=== PATIENT | female | born 1960 | race Caucasian/White ===

== ENCOUNTER 2020-02-05 08:28 | Outpatient (CLI) | payer BC, SELFPAY ==
--- NOTE | ~2020-02-05 | XR_ITS ---
XR foot LT 2V DATE: 02/05/2020 08:50 INDICATION: Left foot pain TECHNIQUE: AP and lateral views COMPARISON: None FINDINGS: Prominent plantar calcaneal enthesopathy without associated erosive change or periostitis. No fracture or dislocation, periosteal reaction or bone destruction. IMPRESSION: Plantar calcaneal enthesopathy Reviewed, dictated and finalized at location A. DIMPLING MACHINE OPERATOR
--- NOTE | ~2020-02-05 | XR_ITS ---
XR hand RT 2V DATE: 02/05/2020 08:50 INDICATION: Right hand pain TECHNIQUE: AP and lateral views COMPARISON: 08/09/2018 right hand FINDINGS: Mild osteoarthritic change at the third metacarpophalangeal joint. No erosive changes. No fracture or dislocation, periosteal reaction or bone destruction. IMPRESSION: Mild third metacarpophalangeal joint osteoarthritic change Reviewed, dictated and finalized at location A. H BRUSHING AND SUEDING SUPERVISOR
--- NOTE | ~2020-02-05 | XR_ITS ---
EXAMINATION: XR chest 2V 02/05/2020 08:51 INDICATION: Polyarthralgias. PROCEDURE: 2 view chest COMPARISON: 10/21/2010 FINDINGS: The lungs are clear. The cardiomediastinal silhouette is within normal limits. There are no pleural effusions. There is no pneumothorax suspected. IMPRESSION: 1: NO ACUTE CARDIOPULMONARY DISEASE. Reviewed, dictated and finalized at location A. ERTY INSURANCE CLAIMS EXAMINER
--- NOTE | ~2020-02-05 | XR_ITS ---
XR hand LT 2V DATE: 02/05/2020 08:50 INDICATION: Left hand pain TECHNIQUE: AP and lateral views COMPARISON: None FINDINGS: No fracture or dislocation, periosteal reaction or bone destruction. There is minimal osteo arthritic change at the third metacarpophalangeal joint and some interphalangeal joints. No erosive c hange is noted. IMPRESSION: Minimal osteoarthritis Reviewed, dictated and finalized at location A. ERWARE WASHER IMPRESSION: Minimal osteoarthritis
--- NOTE | ~2020-02-05 | XR_ITS ---
XR foot RT 2V DATE: 02/05/2020 08:50 INDICATION: Right foot pain TECHNIQUE: AP and lateral views COMPARISON: None FINDINGS: Fracture or dislocation, periosteal reaction or bone destruction. No erosive change. IMPRESSION: No significant abnormality Reviewed, dictated and finalized at location A. R HYDRANT INSTALLER IMPRESSION: No significant abnormality
== END 2020-02-05 08:29 | disposition home or self-care (01) ==
LOC: ANHIMG 08:36
PROVIDERS: PCP Physician Assistant; Visit Provider Physician Assistant Medical
DX: M25.50 Pain in unspecified joint (principal); M77.32 Calcaneal spur, left foot; M19.041 Primary osteoarthritis, right hand
CPT/HCPCS: 71046; 73120; 73620

== ENCOUNTER 2020-03-15 08:52 | Outpatient (CLI) | payer BC, SELFPAY ==
--- NOTE | ~2020-03-15 | XR_ITS ---
XR hand RT 2V DATE: 03/15/2020 09:08 INDICATION: Right middle digit pain TECHNIQUE: AP and lateral views of right hand COMPARISON: None FINDINGS: Mild osteoarthritic change at the third metacarpophalangeal joint. No fracture, dislocation, periosteal reaction or bone destruction. No erosive change is evident. No c hondrocalcinosis. IMPRESSION: Mild osteoarthritis at the third metacarpophalangeal joint Reviewed, dictated and finalized at location A. TIC BOAT PATCHER
== END 2020-03-15 08:53 | disposition home or self-care (01) ==
LOC: ANHIMG 08:56
PROVIDERS: PCP Physician Assistant; Visit Provider Physician Assistant Medical
DX: M79.644 Pain in right finger(s) (principal); M19.041 Primary osteoarthritis, right hand
CPT/HCPCS: 73120

== ENCOUNTER 2024-05-11 08:15 | Outpatient (CLI) | payer MEDICARE, SELFPAY ==
--- NOTE | ~2024-05-11 | XR_ITS ---
Left Hand Technique: PA and lateral views were obtained. Clinical History: Arthropathic siriasis COMPARISON: 02/05/2020 Findings: No acute fracture or dislocation is seen. Osseous alignment is anatomic. Joint spaces are p reserved. Soft tissues are unremarkable. Impression: Unremarkable left hand. Reviewed, dictated and finalized at location . Impression: Unremarkable left hand.
--- NOTE | ~2024-05-11 | XR_ITS ---
Right Hand Technique: PA and lateral views were obtained. Clinical History: Arthropathic psoriasis COMPARISON: 03/15/2020 Findings: No acute fracture or dislocation is seen. Osseous alignment is anatomic. Stable mild degene rative change of the third MCP joint. Soft tissues are unremarkable. Impression: Stable mild degenerative change of the third MCP joint. Reviewed, dictated and finalized at location . Impression: Stable mild degenerative change of the third MCP joint.
--- NOTE | ~2024-05-11 | XR_ITS ---
Left foot Technique: AP and lateral views were obtained. Clinical History: Arthropathic cirrhosis COMPARISON: 02/05/2020 Findings: No acute fracture or dislocation is seen. Osseous alignment is anatomic. Joint spaces are p reserved without erosive or degenerative change. Soft tissues are unremarkable. Impression: Unremarkable left foot radiographs. Reviewed, dictated and finalized at location . Impression: Unremarkable left foot radiographs.
--- NOTE | ~2024-05-11 | XR_ITS ---
Right foot Technique: AP and lateral views were obtained. Clinical History: Arthropathic psoriasis Findings: No acute fracture or dislocation is seen. Osseous alignment is anatomic. Joint spaces are p reserved without erosive or degenerative change. Soft tissues are unremarkable. Impression: Unremarkable right foot radiographs. Reviewed, dictated and finalized at location . Impression: Unremarkable right foot radiographs.
== END 2024-05-11 08:16 | disposition home or self-care (01) ==
PROVIDERS: PCP Physician Assistant Medical; Visit Provider Physician Assistant Medical
DX: L40.50 Arthropathic psoriasis, unspecified (principal); M19.041 Primary osteoarthritis, right hand
CPT/HCPCS: 73120; 73620

== ENCOUNTER 2024-11-06 08:25 | Outpatient (CLI) | payer MEDICARE, SELFPAY ==
--- NOTE | ~2024-11-06 | DEXA_ITS ---
Bone Density Report Name: ISSA GOMEZ Age: 64 Sex: Female Ethnicity: White Date of : 1960 Indication: postmenopausal; screening for osteoporosis; height loss; cancer; hysterectomy; Referring Provider: CHANTEL, HEMALATHA Study: Bone densitometry was performed. Exam Date: November 06, 2024 Accession number: [id number] Bone Density: Region BMD T-score Z-score Classification AP Spine(L1-L4) 0.836 -1.9 -0.1 Osteopenia Femoral Neck (Left) 0.638 -1.9 -0.3 Osteopenia Total Hip (Left) 0.736 -1.7 -0.4 Osteopenia Femoral Neck (Right) 0.581 -2.4 -0.8 Osteopenia Total Hip (Right) 0.666 -2.3 -1.0 Osteopenia Total Hip Mean 0.701 -2.0 -0.7 Osteopenia World Health Organization criteria for BMD impression classify patients as: Normal (T-score at or above -1.0), Osteopenia (T-score between -1.0 and -2.5), or Osteoporosis (T-score at or below -2.5). 10-year Fracture Risk(1): Major Osteoporotic Fracture 12% Hip Fracture 2.4% Reported Risk Factors: [place] (), Neck BMD=0.581, BMI=24.2 (1) FRAX(R) Version 3.08. Fracture probability calculated for an untreated patient. Fracture probability may be lower if the patient has received treatment. Clinical Information Provided by Patient: Has used the following medications: Vitamin D Has the following medical conditions: Cancer, Hysterectomy, skin CA Patient maximum height was 64.0 Menopause Age: 34 Drinks caffeinated beverages Onset of menses at age 15 Number of children 1 Impression: The patient has low bone mass, based on the Right Femoral Neck T-score. The patient has an estimated ten-year risk of hip fracture of 2.4% and an estimated ten-year risk of major fracture of 12%, based on the WHO FRAX algorithm. Discussion: BONE DENSITY IS LOW AT ONE OR MORE SKELETAL SITES. This patient's lowest T-score is low at one or more skeletal sites. It meets the World Health Organization's (WHO) criteria for ?low bone mass? (T-score between -1.0 and -2.5). The patient's 10-year risk of fracture as calculated by FRAX is less than the threshold where pharmacological therapy is recommended by the National Osteoporosis Foundation (NOF). However, all treatment decisions require clinical judgment and consideration of individual patient factors, including patient preferences, comorbidities, previous drug use, risk factors not captured in the FRAX model (e.g., frailty, falls, vitamin D deficiency, increased bone turnover, interval significant decline in bone density) and possible under or overestimation of fracture risk by FRAX. The patient should follow a healthful lifestyle (good nutrition with adequate calcium and vitamin D, and appropriate weight-bearing exercise). Follow-Up: Consider repeating this study in 2 to 3 years to reassess this patient's status, or sooner if there is some new clinical indication. Reported by: ROSSANA on 11/06/2024 9:09:00 AM. Reviewed, dictated and finalized at location A.
--- OUTSIDE RECORDS SUMMARY | 2024-11-06 08:35 | XMS_ITS | Encounter Summary ---
Author Organization [facility] Facility Care Team Providers Care Environment Coordinator Name Role Phone Kavita Holloway Primary Care Provider [phone] Papito Rubin MD Unavailable Encounter Details Date Type Department Care Team (Latest Contact Info) Description 04/10/2016 Orders Only [facility]IN[facility] ProviderJakub MD [address] [place] [id number] Social History Tobacco Use Types Packs/Day Years Used Date Smoking Tobacco: Never Assessed Comments Unknown Sex and Gender Information Value Date Recorded Sex Assigned at Not on file Legal Sex Female 12:58 AM 1ST GRADE TEACHER Gender Identity Female 04/04/2020 9:55 AM 1ST GRADE TEACHER Sexual Orientation Straight 04/04/2020 9: 55 AM 1ST GRADE TEACHER documented as of this encounter Plan of Treatment Not on file documented as of this encounter Procedures Procedure Name Priority Date/Time Associated Diagnosis Comments PROCEDURE - RESULT 03/23/2016 12 :00 AM 1ST GRADE TEACHER documented in this encounter Results * PROCEDURE - RESULT (03/23/2016 12:00 AM 1ST GRADE TEACHER) Narrative 03/23/2016 12:00 AM 1ST GRADE TEACHER Ordered by an unspecified provider. Historical Provider Final Res ult documented in this encounter Visit Diagnoses Not on filedocumented in this encounter Additional Health Concerns Infection Onset Date Last Indicated Resolved Time COVID: Suspected 01/14/2024 01/14/2024 01/14/2024 9:25 AM 1ST GRADE TEACHER documented as of this encounter Care Teams Environment Coordinator Relationship Specialty Start Date End Date Kavita Holloway PA [address] [place] [address] PCP - General Internal Medicine 05/02/18 Papito Rubin MD [address] [place] [address] Consulting Physician Rheumatology 01/16/20 documented as of this encounter
--- OUTSIDE RECORDS SUMMARY | 2024-11-06 08:36 | XMS_ITS | Encounter Summary ---
Author Organization [facility] Facility Care Team Providers Care Eeo Officer Name Role Phone Kavita Holloway Primary Care Provider [phone]- [phone] Papito Rubin MD Unavailable [phone] Encounter Details Date Type Department Care Team (Latest Contact Info) Description 08/17/2016 Orders Only [facility]INCON[facility] ProviderJakub MD [address] [place] [id number] Social History Tobacco Use Types Packs/Day Years Used Date Smoking Tobacco: Never Assessed Comments Unknown Sex and Gender Information Value Date Recorded Sex Assigned at Not on file Legal Sex Female 12:58 AM SLOT OPERATIONS DIRECTOR Gender Identity Female 04/04/2020 9:55 AM SLOT OPERATIONS DIRECTOR Sexual Orientation Straight 04/04/2020 9: 55 AM SLOT OPERATIONS DIRECTOR documented as of this encounter Plan of Treatment Not on file documented as of this encounter Procedures Procedure Name Priority Date/Time Associated Diagnosis Comments SCAN - PATHOLOGY 08/17/2016 12:0 0 AM CDT documented in this encounter Results * SCAN - PATHOLOGY (08/17/2016 12:00 AM CDT) Narrative 08/17/2016 12:00 AM CDT Ordered by an unspecified provider. Historical Provider Final Res ult documented in this encounter Visit Diagnoses Not on filedocumented in this encounter Additional Health Concerns Infection Onset Date Last Indicated Resolved Time COVID: Suspected 01/14/2024 01/14/2024 01/14/2024 9:25 AM SLOT OPERATIONS DIRECTOR documented as of this encounter Care Teams Eeo Officer Relationship Specialty Start Date End Date Kavita Holloway PA [address] [place] [address] PCP - General Internal Medicine 05/02/18 Papito Rubin MD [address] [place] [address] Consulting Physician Rheumatology 01/16/20 documented as of this encounter
--- OUTSIDE RECORDS SUMMARY | 2024-11-06 08:36 | XMS_ITS | Encounter Summary ---
Author Organization [facility] Facility Care Team Providers Care Pin Game Machine Inspector Name Role Phone Kavita Holloway Primary Care Provider [phone]- [phone] Papito Rubin MD Unavailable [phone] Encounter Details Date Type Department Care Team (Latest Contact Info) Description 05/29/2016 Orders Only [facility]INCON[facility] ProviderJakub MD [address] [place] [address] Social History Tobacco Use Types Packs/Day Years Used Date Smoking Tobacco: Never Assessed Comments Unknown Sex and Gender Information Value Date Recorded Sex Assigned at Not on file Legal Sex Female 12:58 AM PROFESSOR CRIMINAL JUSTICE Gender Identity Female 04/04/2020 9:55 AM PROFESSOR CRIMINAL JUSTICE Sexual Orientation Straight 04/04/2020 9: 55 AM PROFESSOR CRIMINAL JUSTICE documented as of this encounter Plan of Treatment Not on file documented as of this encounter Procedures Procedure Name Priority Date/Time Associated Diagnosis Comments SCAN - LABS 06/25/2016 12:00 AM CDT documented in this encounter Results * SCAN - LABS (06/25/2016 12:00 AM CDT) Narrative 06/25/2016 12:00 AM CDT Ordered by an unspecified provider. Historical Provider Final Res ult documented in this encounter Visit Diagnoses Not on filedocumented in this encounter Additional Health Concerns Infection Onset Date Last Indicated Resolved Time COVID: Suspected 01/14/2024 01/14/2024 01/14/2024 9:25 AM PROFESSOR CRIMINAL JUSTICE documented as of this encounter Care Teams Pin Game Machine Inspector Relationship Specialty Start Date End Date Kavita Holloway PA [address] [place] [address] PCP - General Internal Medicine 05/02/18 Papito Rubin MD [address] [place] [address] Consulting Physician Rheumatology 01/16/20 documented as of this encounter
--- OUTSIDE RECORDS SUMMARY | 2024-11-06 08:36 | XMS_ITS | Clinical Summary ---
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 Role Phone Kavita Holloway Primary Care Provider [phone] Papito Rubin MD Unavailable [phone] Allergies Active Allergy Reactions Criticality Noted Date Comments Doxycycline Hives Medium 03/17/2024 Penicillin V Potassium Rash Medium 08/25/2018 Penicillins Hives Medium 01/13/2018 Hives Sulfa (Sulfonamide Antibiotics) Rash,Hives Medium 07/2017 Hives Cetirizine Flushing (skin) Low 03/02/2022 Medications omega-3 fatty acids 500 mg capsule 1600mg Active loratadine (CLARITIN) 10 mg tablet Rx: Claritin PRN Active cholecalcifero l (VITAMIN D-3) 5,000 unit capsule Take 4,000 Units by mouth daily Active mometasone (NASONEX) 50 mcg/actuation nasal spray SPRAY 2 SPRAYS INTO EACH NOSTRIL EVERY DAY 51 g 1 3 Active coenzyme Q10 10 mg capsule Take 1 capsule (10 mg total) by mouth daily Active Otezla 30 mg tablet TAKE 1 TABLET BY MOUTH TWICE DAILY 60 tablet 2 5 Active venlafaxine XR (EFFEXOR-XR) 150 mg 24 hr capsule TAKE 1 CAPSULE BY MOUTH ONCE DAILY WITH FOOD 90 capsule 5 Active hydroxychloroq uine (PLAQUENIL) 200 mg tablet TAKE 1 & 1/2 (ONE & ONE-HALF) TABLETS BY MOUTH ONCE DAILY 135 tablet 1 5 Active triamterene-hy droCHLOROthiaz ruben 37.5-25 mg per tablet TAKE 1 TABLET BY MOUTH ONCE DAILY IN THE MORNING 90 tablet 5 Active estradioL (ESTRACE) 0.01 % (0.1 mg/gram) vaginal cream Insert 1 g into the vagina daily 5 Active triamterene-hy droCHLOROthiaz ruben 37.5-25 mg per tablet TAKE 1 TABLET/CAPSU LE BY MOUTH EVERY MORNING 90 tablet 1 5 025 Discontinued hydroxychloroq uine (PLAQUENIL) 200 mg tabletIndicati ons:Psoriatic Arthritis Take 1.5 tablets (300 mg total) by mouth daily 135 tablet 1 5 025 Discontinued venlafaxine XR (EFFEXOR-XR) 150 mg 24 hr capsule TAKE 1 CAPSULE BY MOUTH ONCE DAILY WITH FOOD 90 capsule 5 025 Discontinued Active Problems Problem Noted Date Diagnosed Date BMI 24.0-24.9, adult 10/30/2024 Assessment & Plan (10/30/2024 8:45 AM CDT): Weight/BMI is in healthy range. Continue healthy lifestyle to maintain. Breast cancer screening by mammogram 04/23/2024 Assessment & Plan (04/23/2024 5:08 PM CDT): Check labs Menopause 12/13/2023 Assessment & Plan (12/13/2023 9:29 AM EYE CARE PROFESSIONAL): Check DEXA Hyperglycemia 07/12/2023 Assessment & Plan (04/23/2024 5:07 PM CDT): Pre-diabetes/hyperglycemia is a precursor to Dm. Stressed importance of working on diet (decrease your simple sugars and one carbohydrate with each meal) and increase you exercise to achieve weight loss and this will help prevent you from progressing to diabetes. Assessment & Plan (07/12/2023 9:18 AM CDT): Check labs Pre-diabetes/hyperglycemia is a precursor to Dm. Stressed importance of working on diet (decrease your simple sugars and one carbohydrate with each meal) and increase you exercise to achieve weight loss and this will help prevent you from progressing to diabetes. Mixed hyperlipidemia 07/12/2023 Assessment & Plan (04/23/2024 5:07 PM CDT): Encouraged patient to follow low fat/low chol diet like the Mediterranean diet. Increase good fats in the diet. Increase exercise. Monitor labs as needed. She is concerned that the statin may be causing some pain. Encouraged her to stop it for a month and see if her symptoms fully resolve. Advised she could try restarting it and just do it twice a week as some is better than none. Will continue trial out to see if we can get her on a statin for its benefit. Assessment & Plan (12/13/2023 9:29 AM EYE CARE PROFESSIONAL): Encouraged patient to follow low fat/low chol diet like the Mediterranean diet. Increase good fats in the diet. Increase exercise. Monitor labs as needed. Discussed results at length including the persistence of the elevation of the LDL. Recommend statin. Reviewed risks benefits alternatives side effects and proper use. Will start Crestor 10 mg. Recheck LFTs in 4 weeks and the lipid panel in 3-4 months Assessment & Plan (07/12/2023 9:19 AM CDT): Encouraged patient to follow low fat/low chol diet like the Mediterranean diet. Increase good fats in the diet. Increase exercise. Monitor labs as needed. Age-related cataract of both eyes 01/28/2023 Assessment & Plan (01/28/2023 1:05 PM EYE CARE PROFESSIONAL): Planning cataract extraction with Dr. Flannery on 02/04. Chalazion left upper eyelid 07/06/2022 Assessment & Plan (01/28/2023 1:05 PM EYE CARE PROFESSIONAL): Planning excision of the growth the left upper lid with Dr. Flannery. Assessment & Plan (07/06/2022 10:28 AM CDT): Discussed with patient that I feel like this may actually be a chalazion and not a stye. She can continue with warm compresses tonight she could even try Jas and Jas baby shampoo to the area but I suspect this may need to be removed. She already has the appointment with Ophthalmology tomorrow so recommend that she keep this appointment for further evaluation. Discussed importance of continuing to monitor for any signs or symptoms of infection. Seasonal allergies 03/08/2022 Assessment & Plan (07/12/2023 9:18 AM CDT): Continue with Claritin, Nasonex as needed for allergy symptoms. Assessment & Plan (03/08/2022 10:38 AM EYE CARE PROFESSIONAL): Encouraged continuing with antihistamine change control manager her Flonase to Nasonex to see if she tolerates it a little bit better and use Mucinex on a regular basis to see if we can help her symptoms improve. 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 Dyspnea 12/10/2021 Assessment & Plan (12/10/2021 12:44 PM CDT): Reports elevated blood pressure readings recently and including today. Does appreciate some intermittent shortness of breath at times. Lungs are CTA bilaterally. Will obtain CXR, TTE and PFTs for evaluation. History of COVID-19 03/20/2021 Overview (03/20/2021): 03/2021 Assessment & Plan (03/20/2021 9:07 AM EYE CARE PROFESSIONAL): Patient has positive home test. Will send a copy of it thru my Chart. Let pt know the newest CDC recommendations are as follows: If positive COVID: Stay home for at least 5 days and isolate from others in your home. Wear a well-fitted mask if you must be around others in your home. End isolation after 5 full days if you are fever-free for 24 hours (without the use of fever-reducing medication) and your symptoms are improving. Wear a well-fitted mask for 10 full days any time you are around others inside your home or in public. Do not go to places where you are unable to wear a mask. Avoid travel Avoid being around people who are at high risk Consider mAb or there appropriate meds depending on risk factors. Encouraged consideration of the mAb due to her immunocompromised state. She would like to pursue. Will contact her Rheum for any further instructions and place order once the COVID tests are received. Treat sxs with Tylenol, Cough/cold medication otc and add VitD 5,000IU daily and Zinc 50mg daily. Monitor sxs and call or go to the ER if has any of the following: --trouble breathing --persistent pain or pressure in the chest --new confusion --inability to wake or stay awake -- bluish lips or face Encounter for long-term (cur rent) use of high-risk medication 03/08/2020 Overview (04/15/2022): 03/2022: TPMT 13 Assessment & Plan (10/03/2024 9:37 AM CDT): Monitor routine labs while on immunomodulatory medication/plaquenil. Labs as below. 05/2024: Normal HCQ/retinal eye exam 03/2022: TPMT 13 01/2020 labs: Neg Hep B/C, Neg Tspot *Received most recent Covid booster 03/2022 Assessment & Plan (01/28/2023 1:12 PM EYE CARE PROFESSIONAL): Patient on Otezla managed by [facility] Assessment & Plan (11/10/2022 11:33 AM CDT): Monitor routine labs while on immunosuppressive medication. 03/2022: TPMT 13 01/2020 labs: Neg Hep B/C, Neg Tspot *Received most recent Covid booster 03/2022 Assessment & Plan (09/01/2022 10:12 AM CDT): Monitor routine labs while on immunosuppressive medication. 03/2022: TPMT 13 01/2020 labs: Neg Hep B/C, Neg Tspot *Received most recent Covid booster 03/2022 Assessment & Plan (06/08/2022 9:36 PM CDT): Monitor routine labs while on immunosuppressive medication. 03/2022: TPMT 13 01/2020 labs: Neg Hep B/C, Neg Tspot *Received most recent Covid booster 03/2022 Assessment & Plan (04/08/2022 9:25 AM EYE CARE PROFESSIONAL): Monitor routine labs while on immunosuppressive medication. 01/2020 labs: Neg Hep B/C, Neg Tspot *Received most recent Covid booster 03/2022 Assessment & Plan (12/10/2021 8:56 AM CDT): Monitor routine labs while on immunosuppressive medication. 01/2020 labs: Neg Hep B/C, Neg Tspot Assessment & Plan (10/28/2021 8:25 AM CDT): Monitor routine labs while on immunosuppressive medication. 01/2020 labs: Neg Hep B/C, Neg Tspot Assessment & Plan (07/29/2021 8:56 AM CDT): Monitor routine labs while on immunosuppressive medication. 01/2020 labs: Neg Hep B/C, Neg Tspot Assessment & Plan (05/25/2021 4:17 PM CDT): Monitor routine labs while on immunosuppressive medication. 01/2020 labs: Neg Hep B/C, Neg Tspot Assessment & Plan (02/21/2021 9:46 AM EYE CARE PROFESSIONAL): Monitor routine labs while on immunosuppressive medication. 01/2020 labs: Neg Hep B/C, Neg Tspot Assessment & Plan (11/17/2020 3:23 PM CDT): Monitor routine labs while on immunosuppressive medication. 01/2020 labs: Neg Hep B/C, Neg Tspot Assessment & Plan (09/18/2020 8:14 AM CDT): Monitor routine labs while on immunosuppressive medication. 01/2020 labs: Neg Hep B/C, Neg Tspot Assessment & Plan (07/14/2020 3:31 PM CDT): Monitor routine labs. 01/2020 labs: Neg Hep B/C, Neg Tspot Assessment & Plan (04/10/2020 8:54 AM EYE CARE PROFESSIONAL): Monitor routine labs. 01/2020 labs: Neg Hep B/C, Neg Tspot Assessment & Plan (03/08/2020 12:11 PM EYE CARE PROFESSIONAL): Monitor routine labs. 01/2020 labs: Neg Hep B/C, Neg Tspot Psoriasis 01/26/2020 Assessment & Plan (04/23/2024 5:05 PM CDT): [facility] in [place] Psoriatic arthritis/Psoriasis -- Otezla and mobic (prn but hasn't taken in months) Assessment & Plan (07/12/2023 9:17 AM CDT): Psoriasis and psoriatic arthritis have both been stable with the Otezla and Mobic. Continue per [facility] in [facility] Assessment & Plan (01/28/2023 1:12 PM EYE CARE PROFESSIONAL): Managed by [facility] and Luther [facility]. Currently on Otezla. Has Mobic but has not used it in months. Feels like her symptoms are well controlled. Discussed with patient Otezla surgeries. She states she was told as long as she is not antibiotics there would not be any limitation. I would still defer this conversation to the supervisor tumbling and rolling for confirmation Psoriatic arthritis 11/22/2019 Overview (05/16/2024): 01/27 labs: Neg HBV/HCV/Tspot, AVISE PATRICE IgG 43 @ 1:320 speckled pattern, anti-thyroglobulin 277 01/27 xrays: -Lt foot: Prominent plantar calcaneal enthesophyte -Rt foot: Unremarkable -Lt hand: minimal OA changes at 3rd MCP joint and some IP joints -Rt hand: Mild OA changes at the 3rd MCP joint -CXR: Unremarkable 05/2024 XR: -Rt hand: stable mild degenerative change of 3rd MCP joint -Lt hand: unremarkable -Bilat feet: unremarkable US right hand/wrist (01/29/20): Mild/moderate effusions and power doppler on examination which will have to be correlated clinically. Moderate synovial thickening in the 3rd MCP and 2nd PIP joints. Grade 2 power doppler in the wrist and radial/scaphoid joint. Grade 2 effusion in the 3rd PIP joint. Grade 1 power doppler in the 3rd MCP joint and volar wrist. Assessment & Plan (10/03/2024 10:40 AM CDT): Repeat hand/feet XRs from May were unremarkable aside from mild OA changes of the R 3rd MCP joint. Remains on 30mg Otezla BID and began 300mg HCQ daily after last visit and tolerating wo side effects. Appreciates lessening of her joint pain with HCQ. Continues to have constant pain/swelling of the R 3rd>2nd MCP joints affecting her ability to lift/carry items in that hand. Otherwise doing well and able to be active. Slight amount of fullness of several PIP joints with moderate synovitis of the R 3rd MCP joint. To continue 30mg Otezla BID and 300mg HCQ daily. Eye exam OK per 05/2024 report. Will provide a R 3rd MCP joint injection today in office. Will check labs today. To return in 3 months, sooner if needed. Seen with Dr. Rubin. Assessment & Plan (04/23/2024 5:01 PM CDT): [facility] in [place] Psoriatic arthritis/Psoriasis -- Otezla and mobic (prn but hasn't taken in months) Assessment & Plan (04/20/2024 10:20 AM CDT): Remains on 30mg Otezla BID. Off Taltz (lost effect) and AZA (Nausea/emesis). Reports constant pain within right hand and left foot for which she has been taking aleve. Still able to perform ADLs and go on her walks. There is moderate amount of synovitis of the MCP/PIP/MTP joints on exam. *Due to burden of disease, will administer kenalog 100 mg IM injection, in office, today. Patient is aware of SE of triamcinolone injection including but not limited to HTN, increase blood glucose, glaucoma and osteopenia with long term acute care registered nurse use of steroids. To continue 30mg Otezla BID. Recommend starting treatment with hydroxychloroquine 300 mg once daily. Discussed SE including but not limited to dizziness, nausea/diarrhea and in rare cases retinal toxicity. Retinal toxicity is rare and occurs in less than 1% of people taking HCQ. It takes being on HCQ for five years before there is a small risk of retinal toxicity. Discussed need for eye exam and provided paperwork with further details. She was amenable to the plan. If no benefit with HCQ after 3-4 months we discussed change in biologic therapy - Bimzelx vs Orencia would be appropriate options. Will also repeat hand/foot XRs to evaluate for any signs of damage from her PsA. No labs are required while on this medication. To return in 3 months, sooner if needed. Assessment & Plan (12/13/2023 9:28 AM EYE CARE PROFESSIONAL): Psoriatic arthritis is managed by [facility]. Assessment & Plan (10/22/2023 10:59 AM CDT): Remains on 30mg Otezla BID. Off Taltz (lost effect) and AZA (Nausea/emesis). Overall has done well since her last visit with only slight return of right hand discomfort recently. Has not required meloxicam. Mild amount of synovitis on exam with few tender peripheral joints. To continue 30mg Otezla BID. No labs are required while on this medication. To return in 6 months, sooner if needed. Assessment & Plan (07/12/2023 9:17 AM CDT): Psoriasis and psoriatic arthritis have both been stable with the Otezla and Mobic. Continue per [facility] in [facility] Assessment & Plan (06/29/2023 10:09 AM CDT): Remains on 30mg Otezla BID. Off Taltz (lost effect) and AZA (Nausea/emesis). Currently experiencing a flare that has affected her hands, hips, knees and feet with moderate AM joint stiffness and swelling. Tried aleve w/o benefit and then meloxicam but did not feel any significant difference. CDAI 25 with moderate synovitis on exam. *Due to burden of disease, will administer kenalog 100 mg IM injection, in office, today. Patient is aware of SE of triamcinolone injection. To continue 30mg Otezla BID. Will check basic labs today. Return in September as previously scheduled - may push this out if she is feeling better. Assessment & Plan (03/16/2023 9:25 AM EYE CARE PROFESSIONAL): Remains fairly stable on 30mg Otezla BID. Off Taltz (lost effect) and AZA (Nausea/emesis). Off meloxicam and has only taken a few aleve prn over the holidays. She has been able to perform her ADLs, go for walks without difficulty although still with some plantar fascia and achilles tendon discomfort. Some synovitis present on exam but CDAI is low. Continue 30mg Otezla BID. Will check basic labs at next visit. Return in 6 months, sooner if needed. Assessment & Plan (01/28/2023 1:12 PM EYE CARE PROFESSIONAL): Managed by [facility] and [facility]. Currently on Otezla. Has Mobic but has not used it in months. Feels like her symptoms are well controlled. Discussed with patient Otezla surgeries. She states she was told as long as she is not antibiotics there would not be any limitation. I would still defer this conversation to the supervisor tumbling and rolling for confirmation Assessment & Plan (11/10/2022 11:40 AM CDT): Began Otezla BID after last visit and tolerating w/o side effects. Joints feel better, able to be more active, less AM joint stiffness. Off Taltz (lost effect) and AZA (Nausea/emesis). Off meloxicam. Mild amount of synovitis and joint tenderness on exam today. Appears to be responding to medication. Continue 30mg Otezla BID. Will check CMP/CBC today. Return in 3-4 months, sooner if needed. Assessment & Plan (09/01/2022 4:17 PM CDT): Tried azathioprine 50mg once daily again but had nausea/emesis and discontinued. Remains on Taltz injections monotherapy and notes continued joint stiffness/swelling that has worsened over the past 2 weeks. Now with hours of AM joint stiffness and taking aleve often. Off meloxicam. Moderate amount of synovitis and joint tenderness on exam today. Appears to have lost effect with Taltz. Has failed all other DMARDs aside from HCQ but this could worsen her psoriasis and therefore will avoid. Discussed option to try either Humira or Otezla and reviewed the potential side effects associated with either medications. Given her recurrent sinusitis infections she would like to try Otezla first. Will start approval process for 30mg BID maintenance dose and provided her with starter pack (she was instructed to not start until she received confirmation that maintenance dose has been approved) and a handout for further information. Due to burden of disease, will administer kenalog 100 mg IM injection, in office, today. Patient made aware of SE of triamcinolone injection including but not limited to HTN, increase blood glucose, glaucoma and osteopenia with correction use of steroids. Will recheck CBC today. Return in 2 months, sooner if needed. Assessment & Plan (06/09/2022 12:18 PM CDT): CDAI 23, mod-high Continued Taltz monthly injections and was on 50mg AZA daily but stopped this after she had Covid in April and did not restart - felt it caused her flushing/facial redness when she was on it and was working outside. Has been seeing podiatry with adjustments in her inserts and added cushioning which has decreased her foot pain/swelling. Walking frequently and staying active. Still with moderate amount of synovitis on exam and several tender peripheral joints. Discussed restarting 50mg AZA daily and monitoring for return of her flushing/reddened skin - I do not suspect these symptoms were due to AZA. She has failed MTX/LEF, is allergic to Sulfa and would prefer to avoid HCQ with psoriasis and moderate activity. Continue monthly Taltz injections. To perform routine labs in 4 weeks and return in 8-10 weeks. If she is tolerating AZA at 4 weeks then may increase to 50mg BID - will discuss via phone. Assessment & Plan (04/08/2022 10:13 AM EYE CARE PROFESSIONAL): CDAI 34. Continued on monthly Taltz injections. Notes worsening foot pain and hand swelling over the past 2 months but admits to consuming more sugary foods which may be her trigger. Continues to walk several times a week and gets 10K steps daily. Moderate amount of synovitis on exam today with several tender peripheral joints. As she appeared to be responding to Taltz prior to this winter will have her continue monthly injections. Discussed addition of a daily DMARD to see if this would buffer her between injections and suggested starting treatment with 50mg azathioprine once daily - reviewed the potential adverse effects of the medication, including but not limited to GI upset, blood count abnormalities, increased infection, and/or allergic reaction. She was amenable to the plan and provided with a handout for further information. Will check TPMT today as well as basic labs. Return in 4 weeks. *Due to burden of disease, will administer kenalog 100 mg IM injection, in office, today. Patient made aware of SE of triamcinolone injection including but not limited to HTN, increase blood glucose, glaucoma and osteopenia with correction use of steroids. Assessment & Plan (03/08/2022 10:36 AM EYE CARE PROFESSIONAL): Continue per Rheumatology Assessment & Plan (12/21/2021 8:09 PM EYE CARE PROFESSIONAL): Continue per Rheumatology Assessment & Plan (12/10/2021 12:38 PM CDT): CDAI 12, low-moderate On Taltz monthly, remained off meloxicam. Completed prednisone taper after last visit and has continued to feel good from a joint perspective. No longer waking up with foot pain. Still some synovitis of the hands and feet on exam but improved since last visit with less joint tenderness. Suspect right knee fullness is due to OA changes. PsA appears well controlled at this time, suspect she was in a flare at last visit. Continue 80mg Taltz sq monthly. Routine labs today. Return in 4 months. Sooner if needed. Assessment & Plan (10/29/2021 12:44 PM CDT): CDAI 29, high On Taltz monthly but noting worsening joint pain - hands/feet sore again. Denies recurrent URIs. Tried taking meloxicam 15mg daily for a week but developed tongue ulcer and discontinued. Moderate synovitis of the hands and feet on exam with diffuse amount of synovitis. Appears to be in a flare vs losing effect with Taltz. Due to burden of disease, will administer kenalog 100 mg IM injection, in office, today. Will have her return in 6 weeks, after she has taken another 1-2 taltz injections. If she continues to have moderate inflammatory symptoms/exam findings will discuss change in biologic therapy. She was amenable to the plan. Assessment & Plan (08/31/2021 1:00 PM CDT): Continue per [facility] Assessment & Plan (07/29/2021 12:18 PM CDT): CDAI 6.1, low Began Taltz after last visit and notes near resolution of joint pain and AM stiffness. Does report after each Taltz injection she has developed a URI. Insurance denied Cosentyx (not formulary), failed xeljanz (no effect), failed LEF (no effect) and MTX (S/E). Significant improvement in joint tenderness and synovitis on exam. Given the occurrence of her URI symptoms 24hrs after dosing her medication it is unlikely due to the Taltz. More likely she was already developing an infection with coincidental timing of Taltz and symptoms. Will have her complete her current doxycycline antibiotic and take her next Taltz a week late to allow her to fully recover from her sinusitis. If she develops another subsequent URI will have to discuss alternative treatment - she will call and let the office know. May take 15mg meloxicam prn. Routine labs today. Return in 3 months. Sooner if needed. Seen with Dr. Rubin. Assessment & Plan (05/26/2021 10:31 AM CDT): CDAI 32, high On xeljanz and 15mg meloxicam prn. Failed LEF (no effect) and MTX (S/E). Feels like xeljanz may not be offering benefit at this time. Moderate amount of synovitis and tenderness of the hands/feet/knees on exam. Does not appear to be doing well at this time with increased synovitis and joint pain. Discussed switching to either an IL-17 or Otelza and discussed potential side effects associated with either drug. I think she would have more joint benefit from an IL-17 and she was amenable to trying this, therefore will start approval for 150 mg Cosentyx monthly injections. In the meantime continue xeljanz 11mg once daily and 15mg meloxicam prn until new biologic is approved. Return in 2 months. Sooner if needed. Labs at that time. Seen with Dr. Rubin. *Due to burden of disease, will administer kenalog 100 mg IM injection, in office, today. Assessment & Plan (03/16/2021 4:16 PM EYE CARE PROFESSIONAL): Continue per [facility] Assessment & Plan (02/21/2021 10:06 AM EYE CARE PROFESSIONAL): CDAI 16, moerate On xeljanz and 15mg meloxicam prn. Received steroid taper after last visit due to worsening symptoms thought to be due to taking care of her [id number] for a time being. Failed LEF (no effect) and MTX (S/E). Was off xeljanz for 1 week recently due to illness and has not been as active as usual. There is synovitis present on exam today of the hands and right foot MTP joints with several tender peripheral joints. Continue xeljanz 11mg once daily and 15mg meloxicam prn. Overall she feels improvement in her symptoms since starting xeljanz. Suspect her increase in joint discomfort is from being off xeljanz and the weather as she had worse synovitis on prior exam. Routine labs today - reviewed recent CBC. Return in 3 months. Sooner if needed. Seen with Dr. Rubin. Assessment & Plan (01/18/2021 9:25 PM EYE CARE PROFESSIONAL): Continue per her [facility] Rheumatology. Assessment & Plan (11/25/2020 9:27 AM CDT): Continue her Rheumatology. She is currently on hold with the Xeljanz until she gets a 3rd booster. Rheumatology started her on a short course of prednisone told her over. Will continue to monitor. Assessment & Plan (11/18/2020 10:24 AM CDT): Began xeljanz 11mg once daily and 15mg meloxicam once daily after last visit. Failed LEF (no effect) and MTX (S/E). 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 Synovitis and joint tenderness on exam. Continue xeljanz 11mg once daily. Discussed prednisone taper, 10mg x 7 days then 5mg x 7 days for her current complaints, and she was amenable to the plan. Will hold meloxicam while she takes the prednisone. Her [id number] should be completing home therapy in 2 weeks. We also reviewed when to hold her medications for vaccines/antibotics. Restart Meloxicam once prednisonee completed as needed. Routine labs today. Return in 3 months. Sooner if needed. Assessment & Plan (10/07/2020 9:49 PM CDT): Continue per Rheum Assessment & Plan (09/19/2020 9:23 AM CDT): CDAI 45, high. Stopped MTX 2/2 nasal ulcers. Began 20mg leflunomide in July with poor control of her joint complaints. Flaring today, significant amount of synovitis and joint tenderness on exam. Will stop leflunomide as she notes no change in symptoms since starting it 2 months ago. Discussed initiating treatment with 11mg xeljanz once daily and reviewed the potential side effects of the medication, including but not limited to increased risk of infection, blood clots, headache, diarrhea, bowel perforation, and/or lymphoma risk. She was amenable to the plan and a medication brochure was provided for additional review. She is UTD on her Shingrex vaccinations. Will also send in script for 15mg meloxicam once daily to see if she can get some joint improvement - to stop all other NSAIDs. Routine labs today. Return in 4-6 weeks. Sooner if needed. Seen with Dr. Rubin. Due to burden of disease, will administer kenalog 100 mg IM injection, in office, today. Patient made aware of SE of triamcinolone injection including but not limited to HTN, increase blood glucose, glaucoma and osteopenia with correction use of steroids. Assessment & Plan (07/15/2020 9:15 AM CDT): CDAI 33, high On MTX monotherapy and failing treatment. Notes increase in joint pain and stiffness over the past several days with development of nasal ulcers. Moderate synovitis and tenderness on exam with nasal ulcers and friable mucosa present. Will stop methotrexate at this time due to poor response and S/E. Increase folic acid to 2mg daily for the next few weeks to help with nasal ulcers. Also recommend application of vasoline using qtip. Will initiate treatment with leflunomide 20 mg po daily and reviewed potential adverse effects including diarrhea, nausea, and hair loss. Warned to watch for development of any rash and to stop taking and call should this occur. Reviewed need for routine lab monitoring throughout the duration of taking this medication, initially monthly and then quarterly as long as they remain on the medication. Discussed a prednisone taper for bridge therapy/rapid reduction of her synovitis/pain while she switches medications and reviewed the S/E of long term acute care registered nurse use of steroids - patient was amenable to the plan. Provided handout for further review of leflunomide. Plan for follow up in 4 weeks to reassess or sooner as needed. Routine labs today. Seen with Dr. Rubin. Assessment & Plan (04/11/2020 8:51 AM EYE CARE PROFESSIONAL): CDAI 22, moderate Increased MTX dose following last visit and tolerating well. Requiring less advil. Feels some improvement in left hand. Infrequent dysphagia symptoms present. Still with moderate synovitis on exam. Continue 20mg MTX weekly and 1mg FA daily to allow more time to take effect. Continue advil use prn. Routine labs today. Return in 2-3 months. Sooner if needed. Recommend discussing dysphagia symptoms with PCP or our office if it becomes more persistent as she may require an EGD for further evaluation. Assessment & Plan (04/07/2020 8:27 PM EYE CARE PROFESSIONAL): Continue per [facility]. Assessment & Plan (03/12/2020 3:13 PM EYE CARE PROFESSIONAL): CDAI 27, high Began MTX following last visit and tolerating well. Does not note much improvement. Still with 1hr joint stiffness in the AM. Moderate synovitis on exam with several tender joints. Increase to 20mg MTX weekly, continue 1mg folic acid daily. Encouraged routine use of NSAID and if she experiences improvement in joint pain we can discuss starting a short course of a prescription strength NSAID. Routine labs today. Return in 4 weeks. Sooner if needed. Assessment & Plan (02/12/2020 5:19 PM EYE CARE PROFESSIONAL): She reports pain in her hands beginning earlier this year with recent onset of foot pain. Has psoriasis on her hands controlled with eucrisa ointment. Notes AM joint stiffness up to 1 hr with gradual improvement as well as swelling in her hands/toes. Recent +PATRICE on lab work. Reports history of plantar fasciitis, dysphagia and dactylitis of her right 3rd digit. Strong FH of RA in maternal GM/aunt/cousin. Recent serologies were positive for PATRICE at 1:320 speckled pattern with an anti-thyroglobulin of 277. Radiographic imaging revealed mild OA changes of the hands at the 3rd MCP joint, a plantar calcaneal enthesophyte of the left foot and an unremarkable CXR. A right hand/wrist US demonstrated mild/moderate effusions and power doppler on examination. Bilateral hands with synovitis on exam as well as tenderness. Symptoms, presence of psoriasis and current work up correlate with a diagnosis of psoriatic arthritis. Recommend initiating treatment with 12.5mg MTX once weekly and 1mg folic acid daily. Patient advised of the side effects of the medication, including but not limited to increased risk of infection, GI upset, increased LFTs, mouth sores, rash, diarrhea, and/or blood count abnormalities. Discussed that this medication can take upwards of 3 months before joint improvement is noticeable and the dosage will be increased at each subsequent visit until symptoms are controlled or the maximum dose of 20mg is achieved. Pt was amenable to the plan and handouts reviewing the diagnosis and medication were provided for additional review. Discussed current pandemic and appropriate precautions to take while on this medication. Consider prescription strength NSAID at next visit if joint pain worsens while we are getting her established on MTX. Return in [address] Rubin. Assessment & Plan (01/26/2020 5:00 PM EYE CARE PROFESSIONAL): She reports pain in her hands beginning earlier this year with recent onset of foot pain. Has psoriasis on her hands controlled with eucrisa ointment. Notes AM joint stiffness up to 1 hr with gradual improvement as well as swelling in her hands/toes. Recent +PATRICE on lab work. Reports history of plantar fasciitis, dysphagia and dactylitis of her right 3rd digit. Strong FH of RA in maternal GM/aunt/cousin. Synovitis appreciated of the hands with tenderness over several peripheral joints. Symptoms suspicious for PsA, less likely RA. Will perform appropriate radiographs, serologies, and right hand US to assess the etiology of symptoms. Consider prescription strength NSAID at next visit as chad worked in the beginning but lost effect. Return in [address] Rubin. Assessment & Plan (11/25/2019 1:18 PM CDT): This is a significant, separately identifiable problem that was evaluated and managed on the same day as the wellness exam Check labs to rule out autoimmune cause. Trial NSAIDs otc to see if helps with sxs as may be OA. She is in agreement. Dysuria 04/13/2019 Assessment & Plan (05/14/2022 8:54 AM CDT): Pt presents with dysuria. Urine dip completed. Send urine culture. Antibiotic to pharmacy. Reviewed bladder care. Assessment & Plan (04/13/2019 9:34 AM EYE CARE PROFESSIONAL): Pt presents with dysuria. Urine dip completed. Send urine culture. Antibiotic to pharmacy. Reviewed bladder care. Situational stress 12/03/2018 Assessment & Plan (04/23/2024 5:01 PM CDT): Situational stresses stabilized a little. Continue venlafaxine 150 mg. Call if she has an increase in her symptoms Assessment & Plan (01/23/2024 9:27 PM EYE CARE PROFESSIONAL): Increased stressors after the loss of her granddaughter in utero. She has been on Effexor XR 75 but does feel like with the holidays and continuing to work with the grieving process that and increase would be helpful. May double up to equal 150 by taking 2 of the 75 mg tablets until they are exhausted the new prescription for 150 will be sent. Follow up in 6-8 weeks to reassess sooner for any other problems or concerns Assessment & Plan (12/13/2023 9:28 AM EYE CARE PROFESSIONAL): Patient continues to have stressors at home. She is also still grieving her granddaughter's . Continue with the venlafaxine XR 75. She does not want to change her medication. Encouraged counseling especially grief counseling at this time. Provided information. Assessment & Plan (07/12/2023 9:22 AM CDT): Increased stress symptoms. Willing to increase the Effexor to 75. May take 2 of the 37.5 mg tablets until they are exhausted then will return to 1 of the Effexor 75. If her symptoms do not improve or stabilize she may call at any time Assessment & Plan (03/08/2022 10:36 AM EYE CARE PROFESSIONAL): Patient is doing well with venlafaxine 37.5 daily. Refills available Assessment & Plan (12/21/2021 8:09 PM EYE CARE PROFESSIONAL): Patient feels as though her stress is stable with the Effexor Assessment & Plan (08/31/2021 1:00 PM CDT): Stable with affects her 37.5 Assessment & Plan (03/16/2021 4:16 PM EYE CARE PROFESSIONAL): Continue Effexor XR. Assessment & Plan (11/25/2020 9:26 AM CDT): Continue Effexor 37.5 mg. Will continue to monitor. Assessment & Plan (10/07/2020 9:48 PM CDT): Continue Effexor Assessment & Plan (11/25/2019 1:19 PM CDT): This is a significant, separately identifiable problem that was evaluated and managed on the same day as the wellness exam Decrease Effexor to 37.5 to see if any change in her sxs. If increased vasomotor may consider increase back Assessment & Plan (07/03/2019 3:46 PM CDT): Stable with Effexor. Continue same dose Assessment & Plan (12/29/2018 9:15 AM EYE CARE PROFESSIONAL): Improving with the Effexor. Tolerating well. Increase to 75mg one daily. Monitor. Followup 6 weeks to reassess. Assessment & Plan (12/03/2018 7:33 PM CDT): Pt is experiencing increased stress and menopausal sxs while trying to decrease her Estrogen. Recommend to start [id number] Reviewed risks, benefit, alternatives, side effects and proper use. Reviewed continue to use the Estrogen 0.3 and may consider continued taper once the Effexor is at a more steady state. Followup 4-6 weeks to reassess. Abnormal CT scan, cervical spine 08/25/2018 Assessment & Plan (12/03/2018 7:32 PM CDT): Cleared for additional followup by [facility]. Assessment & Plan (09/03/2018 10:53 PM CDT): Reviewed results with patient. Will get all of her cancer screenings updated. She is so worried about her family history with unknown primary of cancer with her mother that I will refer her to [facility] for further evaluation/workup. She is in agreement. Surgical menopause 08/21/2018 Overview (10/07/2020): Discontinued ERT in 09/2020 Assessment & Plan (04/07/2020 8:30 PM EYE CARE PROFESSIONAL): Patient has been tapering Estrogen. Has been on Premarin 0.3mg. Few hot flashes but tolerable. Take every other day for a month then q third day etc. Tolerating Effexor well. Assessment & Plan (11/25/2019 1:19 PM CDT): This is a significant, separately identifiable problem that was evaluated and managed on the same day as the wellness exam Tapering Estrogen slowly. Seems to be tolerating well. Assessment & Plan (07/03/2019 3:47 PM CDT): Continue the Premarin. Refills to pharmacy Assessment & Plan (12/29/2018 9:16 AM EYE CARE PROFESSIONAL): Continue the Premarin. Will reassess at next visit and once Effexor is stable will begin to slowly taper the Premarin. Assessment & Plan (12/03/2018 7:34 PM CDT): See stress Eczema, dyshidrotic 08/21/2018 Assessment & Plan (12/03/2018 7:32 PM CDT): Continue Clobetasol. Vitamin D deficiency 08/21/2018 Assessment & Plan (04/23/2024 5:00 PM CDT): Supplement Assessment & Plan (07/12/2023 9:16 AM CDT): Continue supplementation Assessment & Plan (03/08/2022 10:36 AM EYE CARE PROFESSIONAL): Supplement Assessment & Plan (03/16/2021 4:16 PM EYE CARE PROFESSIONAL): supplement Assessment & Plan (10/07/2020 9:47 PM CDT): supplement Assessment & Plan (11/25/2019 1:18 PM CDT): supplement Assessment & Plan (07/03/2019 3:45 PM CDT): supplement Assessment & Plan (12/03/2018 7:32 PM CDT): supplement Resolved Problems Problem Noted Date Diagnosed Date Resolved Date Immunity status testing 04/23/202410/10 Assessment & Plan (04/23/2024 5:08 PM CDT): Check MMR IgG to see if she has full immunity or needs updated Welcome to Medicare preventive visit 04/23/2024 10/30/2024 Assessment & Plan (04/23/2024 5:08 PM CDT): Encouraged healthy lifestyle, good nutrition and exercise. Encouraged Calcium and Vitamin D and weight bearing exercise for bone health. Reviewed immunizations. Reviewed age appropirate screenings. Medicare Wellness Documentation is completed within the chart Fever 01/23/2024 04/23/2024 Assessment & Plan (01/23/2024 9:24 PM EYE CARE PROFESSIONAL): COVID and FLU A/B negative Acute cough 01/23/2024 04/23/2024 Assessment & Plan (01/23/2024 9:25 PM EYE CARE PROFESSIONAL): COVID and FLU A/B negative Acute non-recurrent pansinusitis 01/23/2024 04/23/2024 Assessment & Plan (01/23/2024 9:24 PM EYE CARE PROFESSIONAL): Start antibiotic, antihistamine (Claritin OR Zyrtec), Mucinex 12hour and Steroid nasal spray (Flonase). Push fluids. Rest. Supportive care. If sxs worsen or don\'t improve, pt is to followup in the office. Will send doxy as well as a steroid Dosepak. Annual physical exam 07/12/2023 024 Assessment & Plan (07/12/2023 9:19 AM CDT): Encouraged healthy lifestyle, good nutrition and exercise. Encouraged Calcium and Vitamin D and weight bearing exercise for bone health. Reviewed immunizations Reviewed age appropirate screenings. Encounter for pre-operative examination 01/28/2023 07/12/2023 Assessment & Plan (01/28/2023 1:14 PM EYE CARE PROFESSIONAL): I have reviewed with patient the inherent risks associated with surgery, not limited to bleeding, infection. Patient denies any cardiac sxs with activity. Therefore, to the best of my knowledge, there is not a medical contraindication for undergoing this elective surgery with local for cataract extraction and eyelid growth removal with Dr. Flannery on 02/04. Form completed and returned to Dr. Flannery' office BMI 22.0-22.9, adult 01/27/2023 024 Assessment & Plan (01/27/2023 10:26 AM EYE CARE PROFESSIONAL): Weight/BMI is in healthy range. Continue healthy lifestyle to maintain. BMI 23.0-23.9, adult 06/29/2022 023 Assessment & Plan (06/29/2022 11:39 AM CDT): Weight/BMI is in healthy range. Continue healthy lifestyle to maintain. Annual physical exam 03/08/2022 024 Assessment & Plan (03/08/2022 10:37 AM EYE CARE PROFESSIONAL): Encouraged healthy lifestyle, good nutrition and exercise. Encouraged Calcium and Vitamin D and weight bearing exercise for bone health. Reviewed immunizations Reviewed age appropirate screenings. Chest pressure 12/21/2021 03/08/2022 Assessment & Plan (12/21/2021 8:10 PM EYE CARE PROFESSIONAL): Patient has been noting some chest pressure. It is not really exertional but she will get pressure that seems to improve when she calms herself. Attempted to do an EKG in the office today but it was not working. Will have her come back in a couple of days to complete the visit. Advised if she would have exertional chest pain or there symptoms begin to increase she is to follow up immediately at the ER. She verbalizes understanding. Breast cancer screening by mammogram 08/31/2021 07/12/2023 Assessment & Plan (01/28/2023 1:05 PM EYE CARE PROFESSIONAL): Mammogram order provided Assessment & Plan (08/31/2021 1:01 PM CDT): Mammogram order provided BMI 23.0-23.9, adult 02/24/2021 025 Assessment & Plan (01/23/2024 9:22 PM EYE CARE PROFESSIONAL): Weight/BMI is in healthy range. Continue healthy lifestyle to maintain. Assessment & Plan (12/08/2023 8:39 AM CDT): Weight/BMI is in healthy range. Continue healthy lifestyle to maintain. Assessment & Plan (07/12/2023 9:18 AM CDT): Weight/BMI is in healthy range. Continue healthy lifestyle to maintain. Assessment & Plan (03/08/2022 10:36 AM EYE CARE PROFESSIONAL): Weight/BMI is in healthy range. Continue healthy lifestyle to maintain. Assessment & Plan (12/21/2021 8:09 PM EYE CARE PROFESSIONAL): Weight/BMI is in healthy range. Continue healthy lifestyle to maintain. Assessment & Plan (08/31/2021 1:01 PM CDT): Weight/BMI is in healthy range. Continue healthy lifestyle to maintain. Assessment & Plan (02/24/2021 4:45 PM EYE CARE PROFESSIONAL): Weight/BMI is in healthy range. Continue healthy lifestyle to maintain. Piriformis muscle pain 02/21/202104/23 Assessment & Plan (05/26/2021 10:21 AM CDT): Improved with the back exercises she has been performing. To continue. Assessment & Plan (02/21/2021 10:09 AM EYE CARE PROFESSIONAL): Describes sciatica like symptoms despite negative left SLR. Does have ttp of the left piriformis muscle bed that mildly reproduces the tingling burning sensation down the back of her leg. Will provide back exercises to perform routinely for the next several weeks. Will also provide a script for 5-10mg flexeril qhs. Encouraged pedro parmar as well. She is to call our office or her PCP for PT referral if the above therapies are not improving her pain/symptoms. She agreed with plan. BMI 24.0-24.9, adult 01/07/20212 022 Assessment & Plan (01/07/2021 7:32 AM EYE CARE PROFESSIONAL): Weight/BMI is in healthy range. Continue healthy lifestyle to maintain. Fatigue 11/25/2020 04/23/2024 Assessment & Plan (07/12/2023 9:18 AM CDT): Probably multifactorial. Check labs and followup to re-evaluate Assessment & Plan (01/18/2021 9:25 PM EYE CARE PROFESSIONAL): Probably multifactorial. Check labs and followup to re-evaluate Assessment & Plan (11/25/2020 9:27 AM CDT): Check labs Elevated MCV 11/25/2020 04/23/2024 Assessment & Plan (11/25/2020 9:28 AM CDT): Patient was elevated MCV and increased bruising. She states has not been on folic acid for almost a year. That was started in conjunction with the methotrexate which did not work for her symptoms. Her MCV has been at 99 up to 103 for the last couple of years. Will check B12 folate as well as do an iron panel as she is having increased bruising. The bruising started before the prednisone as well as before the Xeljanz. Bruising 11/25/2020 04/23/2024 Assessment & Plan (02/21/2021 10:11 AM EYE CARE PROFESSIONAL): Recent CBC appears improved. Xeljanz is not known to cause bruising. Suspect the combination of prednisone and meloxicam use may have contributed to her symptoms. Encouraged her to continue to monitor for worsening bruising (currently reports they are improving) and if present follow up with PCP vs see hematology as suggested by PCP. Assessment & Plan (01/18/2021 9:26 PM EYE CARE PROFESSIONAL): Labs reveal lower and white blood cell count and higher and in CV. Unsure of the bruising could also be secondary to some steroid use as well as her psoriasis medicine. Will recheck CBC in a few weeks and if it continues to drop may pull in Hematology. If patient has increased symptoms any active bleeding any blood in her stool she is to follow up immediately Assessment & Plan (11/25/2020 9:28 AM CDT): Patient was elevated MCV and increased bruising. She states has not been on folic acid for almost a year. That was started in conjunction with the methotrexate which did not work for her symptoms. Her MCV has been at 99 up to 103 for the last couple of years. Will check B12 folate as well as do an iron panel as she is having increased bruising. The bruising started before the prednisone as well as before the Xeljanz. BMI 25.0-25.9,adult 10/07/2020 01/08/20 21 Assessment & Plan (10/07/2020 4:40 PM CDT): Weight/BMI is in healthy range. Continue healthy lifestyle to maintain. Lipid screening 10/07/2020 08/31/2021 Other fatigue 10/07/2020 08/31/2021 Assessment & Plan (11/18/2020 10:21 AM CDT): Will check TSH. Diabetes mellitus screening 10/07/2020 08/31/2021 Assessment & Plan (11/25/2020 9:27 AM CDT): Check labs BMI 25.0-25.9,adult 05/14/2020 10/08/19 Assessment & Plan (05/14/2020 2:58 PM CDT): Weight/BMI is in healthy range. Continue healthy lifestyle to maintain. Visit for suture removal 05/14/2020 Assessment & Plan (05/14/2020 4:27 PM CDT): Advised gagan/clean bandage as needed but leaving to air dry when possible. Advised f/u as needed. Laceration of left index fin jackie without foreign body without damage to nail 05/07/202011/08 Assessment & Plan (05/07/2020 6:53 PM CDT): Wound care provided Will f/u in 7-10d for suture removal, sooner as needed Dog bite 05/07/2020 10/07/2020 Assessment & Plan (05/07/2020 6:53 PM CDT): Up to date guidelines consulted - will start on clindamycin for dog bite Paperwork completed for county regarding dog bite, will be sent in Breast cancer screening by mammogram 04/07/2020 10/07/2020 Assessment & Plan (04/07/2020 8:27 PM EYE CARE PROFESSIONAL): Mammogram order provided BMI 25.0-25.9,adult 04/07/2020 10/31/19 Assessment & Plan (04/10/2024 8:49 AM EYE CARE PROFESSIONAL): Weight/BMI is in healthy range. Continue healthy lifestyle to maintain. Assessment & Plan (05/07/2020 1:11 PM CDT): Weight/BMI is in healthy range. Continue healthy lifestyle to maintain. Assessment & Plan (04/07/2020 8:27 PM EYE CARE PROFESSIONAL): Weight/BMI is in healthy range. Continue healthy lifestyle to maintain. Pain of right middle finger 03/12/2020 11/25/2020 Overview (03/21/2020): 03/2020 Rt hand xray: mild OA at 3rd MCP joint, no fracture. Assessment & Plan (03/12/2020 3:16 PM EYE CARE PROFESSIONAL): Injured on 03/06 following a fall with her right hand 3rd digit getting tangled in the dog leash. Now with moderate swelling of the PIP joint with ttp of the proximal/middle phalanges and PIP joint. Will obtain an xray to evaluate for any small avulsion or chip fracture within the joint space. Will call patient will results once obtained and review any necessary treatment plan. Flu vaccine need 11/22/2019 03/19/2020 Assessment & Plan (11/25/2019 1:20 PM CDT): Updated in office today Annual physical exam 11/22/2019 07/24/2 022 Assessment & Plan (03/16/2021 4:17 PM EYE CARE PROFESSIONAL): Encouraged healthy lifestyle, good nutrition and exercise. Encouraged Calcium and Vitamin D and weight bearing exercise for bone health. Reviewed immunizations Reviewed age appropirate screenings. Assessment & Plan (11/25/2019 1:20 PM CDT): Encouraged healthy lifestyle, good nutrition and exercise. Encouraged Calcium and Vitamin D and weight bearing exercise for bone health. Reviewed immunizations Reviewed age appropirate screenings. BMI 24.0-24.9, adult 04/13/2019 021 Assessment & Plan (11/25/2019 1:20 PM CDT): Weight/BMI is in healthy range. Continue healthy lifestyle to maintain. Assessment & Plan (07/03/2019 3:46 PM CDT): Weight/BMI is in healthy range. Continue healthy lifestyle to maintain. Assessment & Plan (04/13/2019 9:10 AM EYE CARE PROFESSIONAL): Weight/BMI is in healthy range. Continue healthy lifestyle to maintain. Need for shingles vaccine 12/29/2018 Assessment & Plan (12/29/2018 9:16 AM EYE CARE PROFESSIONAL): Updated in office. BMI 22.0-22.9, adult 11/22/2018 020 Assessment & Plan (12/29/2018 9:15 AM EYE CARE PROFESSIONAL): Weight/BMI is in healthy range. Continue healthy lifestyle to maintain. Assessment & Plan (11/22/2018 11:16 AM CDT): Continue healthy lifestyle to continue healthy weight BMI 21.0-21.9, adult 08/25/2018 019 Assessment & Plan (08/25/2018 10:42 AM CDT): Weight/BMI is in healthy range. Continue healthy lifestyle to maintain. Dysuria 08/22/2018 12/29/2018 Assessment & Plan (09/03/2018 10:51 PM CDT): Complete macrobid. Monitor Assessment & Plan (08/22/2018 8:41 PM CDT): Urine dip show hematuria. Start macrobid. Await culture. Encounters Date Type Department Care Team Description 10/30/2024 8:00 AM CDT Office Visit [address] [place] [phone] Kavita Holloway PA Annual physical exam (Primary Dx); Hyperglycemia; Mixed hyperlipidemia; Vitamin D deficiency; Fatigue, unspecified type; BMI 24.0-24.9, adult 10/30/2024 Orders Only [address] [phone] Kavita Holloway PA Menopause (Primary Dx) 10/30/[address] [phone] Kavita Holloway PA Additional Services Or Orders 10/13/2024 Telephone [facility] [address] [place] [phone] Floresita Almaguer Approved 10/04/2024 Results Follow-Up [facility] [address] [place] [phone] Delfina Muir PA CBC with auto differential, Comprehensive metabolic panel 10/03/2024 9:00 AM CDT Office Visit [facility] [address] [place] [phone] Delfina Muir PA Psoriatic arthritis (HCC) (Primary Dx); Encounter for long-term (current) use of high-risk medication 09/29/2024 Orders Only [address] [phone] Kavita Holloway PA 08/11/2024 Documentation [facility] [address] [phone] Catie Olson MD 08/11/2024 Nurse Triage [facility] [address] [phone] Kavita Holloway PA from Last 3 Months Immunizations Immunization Administration Dates Next Due COVID-19 mRNA ([employer]) 0.3 m L (30 mcg) vaccine (12 years and up) 11/05/2023 Influenza, Quadrivalent, Spl it, Preservative Free, Intramuscular 11/23/2022,11/19/2021,12/04/2020,11/21,12/15/2018,11/12/2017,12/01/2016 Influenza, Trivalent, High D ose, Split, Preservative Free, Intramuscular 11/29/2023 Influenza, Unspecified 02/09/2024(Deferred: Kimberly ent Refused) Pfizer SARS-CoV-2 Monovalent Vaccination (12+ Yrs) PURPLE 11/19/2020,05/10/2020,04/16/2020 Pfizer Sars-Cov-2 Bivalent V accination (12+ YRS) 11/25/2022 Pneumococcal Conjugate Pcv20 11/05/2023 RSV, Bivalent, Protein Subun it Rsvpref, Diluent (Abrysvo) 12/29/2023 Tdap 05/02/2018 ZOSTER LIVE 10/03/2013 ZOSTER Recombinant 12/29/2018,06/21/2018 Surgical History Surgery Date Site/Laterality Comments SECTION 02/08/1989 - 02/07/1990 HYSTERECTOMY 02/08/1997 - 02/07/1998 CHOLECYSTECTOMY 02/08/2013 - 02/07/2014 ENDOVENOUS ABLATION SAPHENOU S VEIN W/ LASER 02/09/2016 - 02/07/2017 BREAST BIOPSY 08/08/2016 - 09/07/2016 GALLBLADDER SURGERY BREAST BIOPSY 08/17/2016 Left Medical History Medical History Date Comments Arthritis Family History Medical History Relation Name Comments COPD Father Lung cancer Father Arthritis Mother Brain cancer Mother Diabetes Mother Rectal cancer Mother's Sister Relation Name Status Comments Father Mother Mother's Sister Alive Social History Tobacco Use Types Packs/Day Years Used Date Smoking Tobacco: Never Smokeless Tobacco: Never Tobacco Cessation:Counseling Given: Not Answered Alcohol Use Standard Drinks/Week Comments Never 0 (1 standard drink = 0.6 oz pur e alcohol) PHQ-2 Answer Date Recorded PHQ-2 Total Score (If total score is 3 or more points, staff should administer the PHQ-9) 0 10/30/2024 AUDIT-C Answer Date Recorded Q1: How often do you have a drink containing alcohol? Never 10/30/2024 Q2: How many drinks containi ng alcohol do you have on a typical day when you are drinking? Patient does not drink Q3: How often do you have si x or more drinks on one occasion? Never 10/30/2024 Comments No Sex and Gender Information Value Date Recorded Sex Assigned at Not on file Legal Sex Female 12:58 AM EYE CARE PROFESSIONAL Gender Identity Female 04/04/2020 9:55 AM EYE CARE PROFESSIONAL Sexual Orientation Straight 04/04/2020 9: 55 AM EYE CARE PROFESSIONAL Occupation Industry Job Start Date Job End Date Retired Not on file Not on file Not on file Obstetrics History Para Term AB IAB SAB Ectopic Multiple Livin g Live Births 1 1 1 Date Outcome GA Total Labor Labor/2nd/3rd Weight Sex Type Anes PTL Becka A1 A5 Name Clin Term Last Filed Vital Signs Vital Sign Reading Time Taken Comments Blood Pressure 134/86 10/30/2024 8:39 AM CDT Pulse 54 10/30/2024 8:39 AM CDT Temperature 36.4 C (97.5 F) 10/30/2024 8:39 AM CDT Respiratory Rate 16 12/08/2023 8:35 AM CDT Oxygen Saturation 98% 10/30/2024 8:39 AM CDT Inhaled Oxygen Concentration - - Weight 61.5 kg (135 lb 8 oz) 10/30/2024 8:39 AM CDT Height 160 cm (5' 3) 10/30/2024 8:39 AM CDT Body Mass Index 24 10/30/2024 8:39 AM CDT Plan of Treatment Health Maintenance Due Date Last Done Comments Hepatitis C Screening 1960 Osteoporosis Screening-Bone Density Scan 10/05/2020 10/05/2018 Covid-19 Vaccine (8 - Pfizer risk season) 2024 11/05/2023, 11/25/2022, 11/25/2022, Additional history exists Influenza Vaccine (#1) 2024 4, 11/23/2022, 11/19/2021, Additional history exists Fall Risk Assessment 04/10/2025 04/10/2024, 01/14/2024, 07/12/2023, Additional history exists Breast Cancer Screening-Mammogram 07/07/2025 07/07/2024, 04/12/2023, 11/21/2021, Additional history exists Depression Screening 10/30/2025 10/30/2024, 04/10/2024, 01/14/2024, Additional history exists Well Visit 65+ 10/30/2025 10/30/2024, 04/2024, 07/12/2023, Additional history exists DTaP/Tdap/Td Vaccine (2 - Td or Tdap) 05/02/2028 05/02/2018 Colon Cancer Screening-Colonoscopy 01/10/2029 01/10/2019 Zoster Vaccine Completed 12/29/2018, 06/08, 10/03/2013 Colon Cancer Screening-CT Colonography Discontinued 01/10/2019 Colon Cancer Screening-DNA Stool Discontinued 01/11/20 19 Colon Cancer Screening-FIT Discontinued 01/10/2019 Colon Cancer Screening-Sigmoidoscopy Discontinued 01/10/2019 Hepatitis B Screening Completed 01/26/2020 Pneumococcal vaccine 65+ Completed 11/05/2023 Procedures Procedure Name Priority Date/Time Associated Diagnosis Comments COMPREHENSIVE METABOLIC PANEL Routine 10/03/2024 9:58 AM CDT Psoriatic arthritis (HCC) Encounter for long-term (current) use of high-risk medication CBC WITH AUTO DIFFERENTIAL Routine 10/03/2024 9:58 AM CDT Psoriatic arthritis (HCC) Encounter for long-term (current) use of high-risk medication SCREENING MAMMOGRAM BILATERAL W ARMOND Schedule Routine, Read Routine (OP Routine) 07/07/2024 7:32 AM CDT Breast cancer screening by mammogram HM COLONOSCOPY Routine 01/10/2019 DEXA AXIAL SKELETON BONE DENSITY 1 OR MORE SITES 10/05/2018 8:12 AM CDT from Last 3 Months or Most Recently Relevant to Health Maintenance Results * (ABNORMAL) CBC with auto differential (10/03/2024 9:58 AM CDT) Pathologist [facility] WBC 4.3 3.8 - 10.8 Thousand/u L [facility] RBC, POC 3.90 3.80 - 5.10 Million/uL [facility] Hgb 13.3 11.7 - 15.5 g/dL [facility] Hct 40.1 35.0 - 45.0 % [facility] MCV 102.8(H) 80.0 - 100.0 fL [facility] MCH 34.1(H) 27.0 - 33.0 pg [facility] MCHC 33.2 32.0 - 36.0 g/dL [facility] Comment: For adults, a slight decrease in the calculated MCHC value (in the range of 30 to 32 g/dL) is most likely not clinically significant; however, it should be interpreted with caution in correlation with other red cell parameters and the patient's clinical condition. Rdw 12.7 11.0 - 15.0 % [facility] Platelets 186 140 - 400 Thousand/u L [facility] MPV 9.3 7.5 - 12.5 fL [facility] Neutrophils, abs 2,507 1,500 - 7,800 cells/uL [facility] Lymphocytes, abs 1,316 850 - 3,900 cells/uL [facility] Monocyte abs 348 200 - 950 cells/uL [facility] Eosinophils, abs 108 15 - 500 cells/uL [facility] Basophils, abs 22 0 - 200 cells/uL [facility] Neutrophils 58.3 % [facility] Lymphocyte pct 30.6 % [facility] Monocytes 8.1 % [facility] Eosinophils 2.5 % [facility] Basophils 0.5 % [facility] Blood 10/03/2024 9:58 AM CDT 10/03/2024 9:58 AM CDT us Delfina BURCH LAB BLOOD ORDER BLANK Final Result [facility] [address] [phone] * Comprehensive metabolic panel (10/03/2024 9:58 AM CDT) Glucose 90 65 - 99 mg/dL [facility] Comment: Fasting reference interval BUN 17 7 - 25 mg/dL [facility] Creatinine 0.87 0.50 - 1.05 mg/dL [facility] eGFR 73 > OR = 60 mL/min/1.7 3m2 [facility] BUN/creat ratio SEE NOTE: 6 - 22 (calc) [facility] Comment: Not Reported: BUN and Creatinine are within reference range. Sodium 138 135 - 146 mmol/L [facility] Potassium, pl 3.8 3.5 - 5.3 mmol/L [facility] Chloride 99 98 - 110 mmol/L [facility] CO2 30 20 - 32 mmol/L [facility] Calcium 9.9 8.6 - 10.4 mg/dL [facility] Protein, sr 7.1 6.1 - 8.1 g/dL [facility] Albumin 4.8 3.6 - 5.1 g/dL [facility] GLOBULIN 2.3 1.9 - 3.7 g/dL (calc) [facility] Alb/glob ratio 2.1 1.0 - 2.5 (calc) [facility] Bilirubin, total 0.6 0.2 - 1.2 mg/dL [facility] Alk phos 84 37 - 153 U/L [facility] AST 17 10 - 35 U/L [facility] ALT (SGPT) 15 6 - 29 U/L [facility] Blood 10/03/2024 9:58 AM CDT 10/03/2024 9:58 AM CDT Delfina BURCH LAB BLOOD ORDER BLANK Final Result [facility] [address] [phone] * Screening Mammogram Bilateral W Armond (07/07/2024 7:32 AM CDT) Anatomical Region Laterality Modality Breast Bilateral Mammography Impressions 07/07/2024 7:52 AM CDT BI-RADS ATLAS category (overall): 1 - Negative There is no mammographic evidence of malignancy. A 1 year screening mammogram is recommended. The patient has been or will be contacted. We recommend annual screening mammography for women at average risk of breast cancer beginning at age 40, based on guidelines of the [employer] [employer] (ACR Practice Parameter for the Performance of Screening and Diagnostic Mammography) and [place] [employer]. For women with and elevated risk of breast cancer, please refer to the ACR Practice Parameter for specific screening recommendations. The patient will be entered into a reminder system with a target due date of 1 year for her next screening exam. Narrative 07/07/2024 7:52 AM CDT Screening Mammogram Bilateral W Armond: 07/07/24 The study was acquired using full field digital technology and interpreted from soft copy. 2D digital mammographic views, as well as 3D digital tomosynthesis were performed in the CC and MLO projections. CLINICAL: Breast cancer screening by mammogram. No relevant medical history has been documented for this patient. No known family history of breast cancer. COMPARISONS: 04/12/2023 Screening Mammogram Bilateral W Armond 11/21/2021 Screening Mammogram Bilateral W Armond 08/26/2020 Screening Mammogram Bilateral W Armond BREAST TISSUE: The breasts are heterogeneously dense, which may obscure small masses. FINDINGS: Two biopsy marker clips are unchanged in the left breast. There is no new suspicious finding in either breast on mammogram. Kavita BURCH IMG MAMMO PROCEDURES Final Result * HM COLONOSCOPY (01/10/2019) HM Colonoscopy Normal Comment:Abhi us Historical Provider HEALTH MAINTENANCE Final Result * Dexa Axial Skeleton Bone Density 1 or 2 Site (10/05/2018 8:12 AM CDT) Anatomical Region Laterality Modality Body N/A Radiographic Ana ging 10/05/2018 10:0 5 AM CDT Narrative 10/05/2018 10:07 AM CDT Patient Name: SHAWNA GOMEZ Ordering Dr: Kavita Holloway PA-C, D.O.B: 1960 Exam Date: 10/05/18811 Age: 58 Sex: Female MR#: [id number] Loc: [facility]#: [id number] RADIOLOGY REPORT Order #[id number] Bone Density Bone Density Hip/Spine (STD) Signed EXAM DESCRIPTION: Bone Density Hip/Spine (STD) REASON FOR STUDY: 58 year old postmenopausal white female with given history of screening. Treatment Technician/Model: Holvi Horizon A (S/N [id number]) CLINICAL INFORMATION: Current height: 63 inches Maximum height: 63 inches Weight: 120 pounds Risk factors: Early surgical menopause at age 28. Has taken vitamin-D and hormone replacement therapy. Performs regular weight-bearing exercise. Regularly consumes dairy products. Does not drink caffeinated beverages. COMPARISON: None available. This will serve as a new baseline. Acquisition of a new DXA machine precludes comparison with older exams due to differences in scan type. FINDINGS: AP LUMBAR SPINE L1-L4: Total BMD is 0.863 g/cm2 T-score is -1.7 LEFT HIP: Total BMD is 0.752 g/cm2 T-score is -1.6 Femoral neck BMD is 0.621 g/cm2 T-score is -2.1 Fracture risk assessment (FRAX): 10 year risk for a major osteoporotic fracture is 8.8 % 10 year risk for a hip fracture is 1.2 % The FRAX tool has not been validated in patients currently or previously treated with pharmacotherapy for osteoporosis. In such patients, clinical judgement must be exercised in interpreting FRAX scores as the fracture risk may be overestimated. IMPRESSION: Low bone mass. Bone mineral density: Normal (T-score above or = -1.0) Low bone mass (T-score between -1.0 and -2.5) replaces the previously used term osteopenia Osteoporosis (T-score = or below -2.5) Medical evaluation for secondary causes of low bone mineral density may be appropriate. FRAX is a World Health Organization validated fracture risk assessment tool that calculates a person's 10 year probability of a major osteoporosis related fracture and hip fracture. According to the National Osteoporosis Foundation guidelines, postmenopausal women and men age 50 or older with low bone mass and a 10 year probability of a major osteoporosis related fracture = or greater than 20% or a 10 year probability of a hip fracture = or greater than 3% should be considered for treatment. For further information, including treatment recommendations, please refer to the 2013 ISCD Official Positions (http://www.iscd.org) and the NOF's Clinician's Guide to Prevention and Treatment of Osteoporosis (http://www.nof.org/professionals/clinical-guidelines) THIS IS AN ELECTRONICALLY VERIFIED FINAL REPORT 10/05/2018 10:07 AM - Electronically signed by Jarvis Kumar M.D. RB: JEANNE Report ID: [id number] Reading Location: [id number] REPORT ELECTRONICALLY SIGNED IN OTHER VENDOR SYSTEM Resulting Agency Comment O Procedure Note Jarvis Kumar MD - 10/05/2018 Patient Name: SHAWNA GOMEZ Cristy Dr: Kavita Holloway PA-C, D.O.B: 1960 Exam Date: 10/05/18811 Age: 58 Sex: Female MR#: [id number] Loc: RADIOLOGY REPORT Order #[id number] Bone Density Bone Density Hip/Spine (STD) Signed EXAM DESCRIPTION: Bone Density Hip/Spine (STD) REASON FOR STUDY: 58 year old postmenopausal white female with givenhistory of screening. Treatment Technician/Model: Hologic Horizon A (S/N [id number]) CLINICAL INFORMATION: Current height: 63 inches Maximum height: 63 inches Weight: 120 pounds Risk factors: Early surgical menopause at age 28. Has taken vitamin-Dand hormone replacement therapy. Performs regular weight-bearing exercise. Regularly consumes dairy products. Does not drink caffeinated beverages. COMPARISON: None available. This will serve as a new baseline. Acquisition of a new DXA machineprecludes comparison with older exams due to differences in scan type. FINDINGS: AP LUMBAR SPINE L1-L4: Total BMD is 0.863 g/cm2 T-score is -1.7 LEFT HIP: Total BMD is 0.752 g/cm2 T-score is -1.6 Femoral neck BMD is 0.621 g/cm2 T-score is -2.1 Fracture risk assessment (FRAX): 10 year risk for a major osteoporotic fracture is 8.8 % 10 year risk for a hip fracture is 1.2 % The FRAX tool has not been validated in patients currently or previously treated with pharmacotherapy for osteoporosis. In such patients,clinical judgement must be exercised in interpreting FRAX scores as the fracturerisk may be overestimated. IMPRESSION: Low bone mass. Bone mineral density: Normal (T-score above or = -1.0) Low bone mass (T-score between -1.0 and -2.5) replaces thepreviously used term osteopenia Osteoporosis (T-score = or below -2.5) Medical evaluation for secondary causes of low bone mineral density maybe appropriate. FRAX is a World Health Organization validated fracture risk assessmenttool that calculates a person's 10 year probability of a major osteoporosisrelated fracture and hip fracture. According to the National OsteoporosisFoundation guidelines, postmenopausal women and men age 50 or older with low bonemass and a 10 year probability of a major osteoporosis related fracture = or greater than 20% or a 10 year probability of a hip fracture = or greaterthan 3% should be considered for treatment. For further information, including treatment recommendations, pleaserefer to the 2013 ISCD Official Positions (http://www.iscd.org) and the NOF's Clinician's Guide to Prevention and Treatment of Osteoporosis (http://www.nof.org/professionals/clinical-guidelines) THIS IS AN ELECTRONICALLY VERIFIED FINAL REPORT 10/05/2018 10:07 AM - Electronically signed by Jarvis Kumar M.D. RB: JEANNE Report ID: [id number] Reading Location: [id number] REPORT ELECTRONICALLY SIGNED IN OTHER VENDOR SYSTEM Kavita BURCH IMG DXA PROCEDURES Final R esult from Last 3 Months or Most Recently Relevant to Health Maintenance Insurance [employer] CHOICE [facility] MEDICARE ADVANT[facility] Address: [facility] [address] [place] [address] [facility] MEDICARE ADVANTAGE [facility]IC[facility] Address: [id number] [place] [address] Care Teams [id number] Tank Crewman Relationship Specialty Start Date End Date Kavita Holloway PA [address] [facility] [address] [place] [address] PCP - General Internal Medicine 05/02/18 Papito Rubin MD [address] [place] [address] Consulting Physician Rheumatology 01/16/20
--- OUTSIDE RECORDS SUMMARY | 2024-11-06 08:36 | XMS_ITS | Encounter Summary ---
Author Organization [facility] Healthcare Address [address] [place] [address] Care Team Providers Care Cigarette Book Maker Name Role Phone Kavita Holloway Primary Care Provider [phone] Papito Rubin MD Unavailable [phone] Reason for Visit * Reason Onset Date Comments Urinary Symptom 08/11/2024 Encounter Details Date Type Department Care Team (Late st Contact Info) Description 08/11/2024 Nurse Triage [facility] Family Medicine [address] [facility] [address] [place] [address] Kavita Holloway PA [address] [address] Social History Tobacco Use Types Packs/Day Years Used Date Smoking Tobacco: Never Smokeless Tobacco: Never Alcohol Use Standard Drinks/Week Comments Never 0 (1 standard drink = 0.6 oz pur e alcohol) AUDIT-C Answer Date Recorded Q1: How often do you have a drink containing alcohol? Never 04/10/2024 Q2: How many drinks containi ng alcohol do you have on a typical day when you are drinking? Patient does not drink Q3: How often do you have si x or more drinks on one occasion? Never 04/10/2024 PHQ-2 Answer Date Recorded PHQ-2 Total Score (If total score is 3 or more points, staff should administer the PHQ-9) 0 04/10/2024 Comments No Sex and Gender Information Value Date Recorded Sex Assigned at Not on file Legal Sex Female 12:58 AM FIELD HOCKEY AND LACROSSE COACH Gender Identity Female 04/04/2020 9:55 AM FIELD HOCKEY AND LACROSSE COACH Sexual Orientation Straight 04/04/2020 9: 55 AM FIELD HOCKEY AND LACROSSE COACH Occupation Industry Job Start Date Job End Date Retired Not on file Not on file Not on file documented as of this encounter Miscellaneous Notes * Telephone Encounter - Rafia Wiley LPN - 08/15/2024 2:14 PM CDT Called patient and she stated that she was able to self schedule and did not need a referral. Pt isgoing to order picker her information from the office to take to appt. * Telephone Encounter - Rafia Wiley LPN - 08/14/2024 1:37 PM CDT Called pt and informed her of what provider stated. Pt does not have a SUPERVISOR COMPONENT ASSEMBLER. She will check with insurance to see if Dr. Sabino Robles is in network for her insurance and will call back. Will await placing referral order until pt returns call. * Telephone Encounter - Kavita Holloway PA - 08/14/2024 1:04 PM CDT I would be glad to refer her to Urology/Urogynecology. If she has a SUPERVISOR COMPONENT ASSEMBLER, many GYNs will address incontinence issues. OR [facility] Urogynecology is on main [place] [facility] (Dr. Turner) Or [facility] Dr. Robles in [place]. * Telephone Encounter - Rafia Wiley LPN - 08/14/2024 11:08 AM CDT Patient returned call. She stated that she picked up and completed Cipro that PCP sent out on 07/25/24. She stated that soon after she completed it she felt symptoms again. She has 3 more days left ofthe current Cipro. She does feel some improvement. Patient stated that she wanted to know about the urology referral due to other issues. She stated she has feelings of issues completely emptying her bladder. She stated that when she sits on the toilet, she will move back and forth to feel like she fully empties. She also stated [place] [facility] [place] go [place] to get mail and when she come up the hill she has leaking issues. Pt stated these symptoms are persistent even when she does not have a UTI present. She stated shefeels it is time to see urology for these issues, not the recent UTIs. Patient stated if she needs to come in for a visit she will. Please advise. * Telephone Encounter - Rafia Wiley LPN - 08/14/2024 10:50 AM CDT Called and LVM for pt. Please transfer through to office to [place]. * Telephone Encounter - Kavita Holloway PA - 08/14/2024 9:59 AM CDT Patients last culture showed resistance to Macrobid. My note instructed her to take the Cipro. The note stated she was feeling better so it sounded like maybe she did not take the Cipro at that time. If that is the case, that is why the UTI was right back because the macrobid was resistant. I would like her to complete the Cipro course and then recheck Urine culture to confirm cure (about5 days after her last dose of cipro). If she doesn't clear, will send to Urology, but I suspect it will. * Telephone Encounter - Dominique Jones RN - 08/11/2024 11:59 AM CDT Reason for Conversation Urinary Symptom Background Patient is calling into life assurance representative stating that she is experiencing urinary frequency, urgency and pressure over the past few days. Denies blood in urine. No reports of nausea, vomiting, fever, back pain. She reports that she has been getting frequent UTIs recently. Last occurrence was 07/25 and she was prescribed Cipro at that time. Requesting antibiotics at this time as well as referral to a urologist. Message will be forwarded to office regarding referral request. Recommended local UC or CC for evaluation. Requesting international trade compliance manager be contacted to see if meds can be sent to the pharmacy. SC sent to provider and medication sent to pharmacy(Cipro 500mg BID x 7 days) and recommend f/u with PCP next week. Patient aware. Advised to increase water intake and take medication until gone. Call back with further questions or concerns. Disposition No disposition on file. Reason for Disposition No Reason for Disposition on file. No Initial Assessment on file. No Additional Information on file. Protocols Used No protocols used. * Telephone Encounter - Dominique Jones RN - 08/11/2024 11:53 AM CDT Regarding: frequent urination, pressure, ----- Message from Emily Maki sent at 08/11/2024 11:52 AM CDT ----- Chief: concern: Pt has reoccurring bladder infection, has it again, pressure, freq urina, Duration: yesterday Call Back Number#:[phone] Additional information: Moderate pain documented in this encounter Plan of Treatment Not on file documented as of this encounter Visit Diagnoses Not on filedocumented in this encounter Care Teams Cigarette Book Maker Relationship Specialty Start Date End Date Kavita Holloway PA [address] [facility] [address] [place] [address] PCP - General Internal Medicine 05/02/18 Papito Rubin MD [address] [place] [address] Consulting Physician Rheumatology 01/16/20 documented as of this encounter
--- OUTSIDE RECORDS SUMMARY | 2024-11-06 08:36 | XMS_ITS | Encounter Summary ---
Author Organization [facility] Healthcare Address [address] [place] [address] Care Team Providers Care Office Clinician Name Role Phone Kavita Holloway Primary Care Provider [phone] Papito Rubin MD Unavailable [phone] Reason for Visit * Reason Onset Date Comments Additional Services Or Orders 10/30/2024 Encounter Details Date Type Department Care Team (Late st Contact Info) Description 10/30/2024 Telephone [facility] Family Medicine [address] [facility] [address] [place] [phone] Kavita Holloway PA [address] [address] Additional Services Or Orders Social History Tobacco Use Types Packs/Day Years [...] on file 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 Never 10/30/2024 8:39 AM YVETTET Letty Steward MA Q2: How many drinks containing alcohol do you have on a typical day when you are drinking? Patient does not drink 10/30/2024 8:39 AM YVETTET Letty Steward MA Q3: How often do you have six or more drinks on one occasion? Never 10/30/2024 8:39 AM Letty Napier MA documented as of this encounter Miscellaneous Notes * Telephone Encounter - Letty Steward MA - 10/30/2024 3:12 PM CDT Order faxed. * Telephone Encounter - Iram Nunes - 10/30/2024 12:01 PM CDT Additional Services or Orders Type of Service Requested:Testing Reason for Request (e.g. condition/symptom, date of COVID exposure if applicable): menopause Details Regarding Additional Services (e.g. type of home health, type of equipment, type of test, etc.): Dexa bone scan Where will services be performed? (if outside of the practice, facility name, address, phone/fax offacility): [facility]- [phone]- [place]da [facility]- [place] Additional Comments: pt has this scheduled 11-06-24 Does message need to be routed? Yes-Action Needed documented in this encounter Plan of Treatment Not on file documented as of this encounter Visit Diagnoses Not on filedocumented in this encounter Care Teams Office Clinician Relationship Specialty Start Date End Date Kavita Holloway PA [address] [facility] [address] [place] [address] PCP - General Internal Medicine 05/02/18 Papito Rubin MD [address] [place] [address] Consulting Physician Rheumatology 01/16/20 documented as of this encounter
--- OUTSIDE RECORDS SUMMARY | 2024-11-06 08:36 | XMS_ITS | Encounter Summary ---
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 Gender Identity Female 04/04/2020 9:55 AM 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 OPERATOR Sexual Orientation Straight 04/04/2020 9: 55 AM DRILL SETUP OPERATOR Occupation Industry Job Start Date Job End Date Retired Not on file Not on file Not on file documented as of this encounter Plan of Treatment Not on file documented as of this encounter Visit Diagnoses Not on filedocumented in this encounter Care Teams Digital Data Analyst Relationship Specialty Start Date End Date Kavita Holloway PA [address] [address] PCP - General Internal Medicine 05/02/18 Papito Rubin MD [address] [place] [address] Consulting Physician Rheumatology 01/16/20 documented as of this encounter
== END 2024-11-06 08:26 | disposition home or self-care (01) ==
PROVIDERS: PCP Physician Assistant; Visit Provider Physician Assistant
DX: M85.89 Other specified disorders of bone density and structure, multiple sites (principal); Z78.0 Asymptomatic menopausal state
CPT/HCPCS: 77080